=== PATIENT | male | born 1940 | race Caucasian/White ===

== ENCOUNTER 2017-09-18 12:20 | Emergency (ER) | payer MEDICARE, BC ==
[~2017-09-18] VITALS: Ht 175.3 cm; Wt 93.0 kg
[2017-09-18 12:21] VITALS: BP 201/84; PULSE 58; RESP 15; TEMP 98.8; O2SAT 96
[2017-09-18] MEDS ORDERED: TRAZ50TA12 PO (12:46)
[2017-09-18] MEDS ORDERED: CART120C PO (12:46)
[2017-09-18] MEDS ORDERED: OMEP20TA93 PO (12:46)
[2017-09-18] MEDS ORDERED: JANU50TA8 PO (12:46)
[2017-09-18] MEDS ORDERED: LISI20TA3 PO (12:46)
[2017-09-18] MEDS ORDERED: LANTUS2P SQ ×2 (12:46)
[2017-09-18] MEDS ORDERED: LIPI40TA PO (12:46)
--- NOTE | 2017-09-18 13:03 | PD ---
HPI Chief Complaint: Flank/Kidney Pain Time Seen by Provider: 12:31 Travel History International Travel<30 days: No Contact w/Intl Traveler<30days: No Traveled to known affect area: No History of Present Illness HPI 77-year-old male that presents to the ED of right flank pain with no injury. Per patient has had this on and off for the past 2 weeks. Per patient he comes and goes and worsens with certain movement as well as with laying on that side. Per patient he denies any urinary or bowel movement issues. This morning the pain became more severe 10 out of 10 and he decided to go to an urgent care who recommended that he comes here to get evaluated for CAT scan see whether he has a kidney stone or not. He denies any history of kidney stone in the past. He denies any surgeries ever. He has a history of diabetes and her blood pressure and takes insulin. Has not eaten anything today. Denies any nausea or vomiting. No bowel movement urinary issues. No blood thinner use. No chest pain or shortness of breath. Per patient the pain currently is 4 out of 10. Has been taking OTC meds with minimal relief. No trauma or overuse. No heavy lifting at all. PFSH Past Medical History Cardiovascular Problems: Yes (aortic valve ) High Cholesterol: Yes Diabetes: Yes Patient Takes Glucophage: No Hypertension: Yes Past Surgical History Surgical History: No Previous Surgery Social History Alcohol Use: No Tobacco Use: No Substance Use: No Allergies-Medications (Allergen,Severity, Reaction): Coded Allergies: No Known Allergies (Verified Allergy, Unknown, 09/18/17) Reported Meds & Prescriptions Reported Meds & Active Scripts Active Diclofenac Sodium DR (Diclofenac Sodium) 75 Mg Tabdr 75 Mg PO BID PRN Hydrocodone-Acetamin 5-325 mg (Hydrocodone/Acetaminophen) 5 Mg-325 Mg Tablet 1 Tab PO Q6HR PRN Reported Trazodone (Trazodone HCl) 50 Mg Tab 50 Mg PO HS Omeprazole 20 Mg Tab 20 Mg PO DAILY Cartia Xt (Diltiazem ER 24 HR) 120 Mg Caper 240 Mg PO DAILY Lisinopril-Hctz 20-25 Mg Tab 1 Tab PO DAILY Lantus Inj (Insulin Glargine) 1,000 Unit/10 Ml Vial 40 Units SQ HS Lantus Inj (Insulin Glargine) 1,000 Unit/10 Ml Vial 45 Units SQ AC BREAKFAST Janumet (Sitagliptin-Metformin) 50-1,000 Mg Tab 1 Tab PO DAILY Lipitor (Atorvastatin Calcium) 40 Mg Tab 40 Mg PO HS Review of Systems Except as stated in HPI: all other systems reviewed are Neg Physical Exam Narrative GENERAL: SKIN: Warm and dry. HEAD: Atraumatic. Normocephalic. EYES: Pupils equal and round. No scleral icterus. No injection or drainage. ENT: No nasal bleeding or discharge. Mucous membranes pink and moist. Tongue is midline. No uvula deviation. NECK: Trachea midline. No JVD. CARDIOVASCULAR: Regular rate and rhythm. RESPIRATORY: No accessory muscle use. Clear to auscultation. Breath sounds equal bilaterally. GASTROINTESTINAL: Abdomen soft, non-tender, nondistended. Hepatic and splenic margins not palpable. MUSCULOSKELETAL: Extremities without clubbing, cyanosis, or edema. No obvious deformities. No CVA tenderness noted. 2+ pulses bilaterally. No lumbar, thoracic, cervical spine tenderness to palpation. NEUROLOGICAL: Awake and alert. No obvious cranial nerve deficits. Motor grossly within normal limits. Five out of 5 muscle strength in the arms and legs. Normal speech. PSYCHIATRIC: Appropriate mood and affect; insight and judgment normal. Data Data Last Documented VS Vital Signs Date Time Temp Pulse Resp B/P (MAP) Pulse Ox O2 Delivery O2 Flow Rate FiO2 09/18/17 13:53 59 17 206/95 (132) 98 Room Air 09/18/17 12:21 98.8 Orders Orders Complete Blood Count With Diff (09/18/17 12:37) Comprehensive Metabolic Panel (09/18/17 12:37) Lipase (09/18/17 12:37) Urinalysis - C+S If Indicated (09/18/17 12:37) Magnesium (Mg) (09/18/17 12:37) Ct Abd/Pel W/O Iv Contrast (09/18/17 12:37) Blood Glucose (09/18/17 12:37) Morphine Inj (Morphine Inj) (09/18/17 13:45) Ondansetron Inj (Zofran Inj) (09/18/17 13:45) Ketorolac Inj (Toradol Inj) (09/18/17 13:45) Clonidine (Catapres) (09/18/17 14:00) Ed Discharge Order (2/10/18 14:08) Labs Laboratory Tests Test 09/18/17 12:47 White Blood Count 8.3 TH/MM3 Red Blood Count 4.63 MIL/MM3 Hemoglobin 13.8 GM/DL Hematocrit 40.3 % Mean Corpuscular Volume 86.9 FL Mean Corpuscular Hemoglobin 29.7 PG Mean Corpuscular Hemoglobin Concent 34.2 % Red Cell Distribution Width 13.8 % Platelet Count 183 TH/MM3 Mean Platelet Volume 9.7 FL Neutrophils (%) (Auto) 70.2 % Lymphocytes (%) (Auto) 20.3 % Monocytes (%) (Auto) 7.2 % Eosinophils (%) (Auto) 1.6 % Basophils (%) (Auto) 0.7 % Neutrophils # (Auto) 5.8 TH/MM3 Lymphocytes # (Auto) 1.7 TH/MM3 Monocytes # (Auto) 0.6 TH/MM3 Eosinophils # (Auto) 0.1 TH/MM3 Basophils # (Auto) 0.1 TH/MM3 CBC Comment DIFF FINAL Differential Comment Urine Color YELLOW Urine Turbidity CLEAR Urine pH 6.0 Urine Specific [place] 1.018 Urine Protein NEG mg/dL Urine Glucose (UA) 70 mg/dL Urine Ketones NEG mg/dL Urine Occult Blood NEG Urine Nitrite NEG Urine Bilirubin NEG Urine Urobilinogen LESS THAN 2.0 MG/DL Urine Leukocyte Esterase NEG Urine RBC LESS THAN 1 /hpf Urine WBC 1 /hpf Urine Bacteria RARE /hpf Microscopic Urinalysis Comment CULT NOT INDICATED Blood Urea Nitrogen 19 MG/DL Creatinine 1.15 MG/DL Random Glucose 118 MG/DL Total Protein 7.4 GM/DL Albumin 3.9 GM/DL Calcium Level 9.1 MG/DL Magnesium Level 2.3 MG/DL Alkaline Phosphatase 77 U/L Aspartate Amino Transf (AST/SGOT) 15 U/L Alanine Aminotransferase (ALT/SGPT) 12 U/L Total Bilirubin 0.3 MG/DL Sodium Level 139 MEQ/L Potassium Level 4.4 MEQ/L Chloride Level 104 MEQ/L Carbon Dioxide Level 29.3 MEQ/L Anion Gap 6 MEQ/L Estimat Glomerular Filtration Rate 62 ML/MIN Lipase 75 U/L MDM Medical Decision Making Medical Screen Exam Complete: Yes Emergency Medical Condition: Yes Medical Record Reviewed: Yes Interpretation(s) CBC & BMP Diagram 09/18/17 12:47 Total Protein 7.4, Albumin 3.9, Calcium Level 9.1, Magnesium Level 2.3, Alkaline Phosphatase 77, Aspartate Amino Transf (AST/SGOT) 15, Alanine Aminotransferase (ALT/SGPT) 12, Total Bilirubin 0.3 Last Impressions Abdomen/Pelvis CT 09/18/17 1237 Signed Impressions: Service Date/Time: Wednesday, September 18, 2017 13:11 - CONCLUSION: 1. No evidence of renal stones, hydronephrosis or other abnormality seen to account for the patient's pain. 2. No evidence of inflammatory process within the abdomen or pelvis.. Yadira Law MD UA shows leukerase esterase and bacteria Differential Diagnosis Kidney stone versus pyelonephritis versus gallbladder disease versus muscle strain versus muscle spasm Narrative Course 77-year-old male that presents to the ED for evaluation of right flank pain. Patient was properly examined and was found to have signs and symptoms of unclear etiology. Possible kidney stone. Labs and imaging ordered. Patient was offered pain medication but declined at this time. Labs and imaging showed no sign of acute disease. Patient and family were reassured. Likely muscle skeletal in nature. Pain is only reproducible with certain range of motion. I discussed this in my attending who is in agreement with plan. Patient was given pain medications here with relief of symptoms. Patient was given prescription for pain medications to use as needed. Follow up with PCP. See ED worsening symptoms. Diagnosis Primary Impression: Flank pain, acute Patient Instructions: General Instructions, Narcotic given in the ED Additional Instructions: Take medications as prescribed. Follow-up with PCP. See ED for any worsening symptoms. Do not drink or drive while taking pain medication. Apply ice or heat as needed for pain Med/Other Pt SpecificInfo: Prescription(s) given Scripts Diclofenac Sodium (Diclofenac Sodium DR) 75 Mg Tabdr 75 MG PO BID Y for PAIN SCALE 1 TO 10, #20 TAB 0 Refills Prov: Bird Quinones MD 09/18/17 Hydrocodone/Acetaminophen (Hydrocodone-Acetamin 5-325 mg) 5 Mg-325 Mg Tablet 1 TAB PO Q6HR Y for PAIN SCALE 1 TO 10, #12 Prov: Bird Quinones MD 09/18/17 Disposition: 01 DISCHARGE HOME Condition: Stable Nicholas Mcclelland Sep 18, 2017 13:03
[2017-09-18 13:22] LABS: AUTOMATED NEUTROPHIL # 5.8 TH/MM3 (1.8-7.7); BASOPHIL # 0.1 TH/MM3 (0-0.2); BASOPHIL % 0.7 % (0.0-2.0); EOSINOPHIL # 0.1 TH/MM3 (0-0.4); EOSINOPHIL % 1.6 % (0.0-4.0); HEMATOCRIT 40.3 % (39.0-51.0); HEMOGLOBIN 13.8 GM/DL (13.0-17.0); LYMPH % 20.3 % (9.0-44.0); LYMPHOCYTE # 1.7 TH/MM3 (1.0-4.8); MEAN CELL VOLUME 86.9 FL (80.0-100.0); MEAN CORPUSCULAR HEMOGLOBIN 29.7 PG (27.0-34.0); MEAN CORPUSCULAR HGB CONC 34.2 % (32.0-36.0); MEAN PLATELET VOLUME 9.7 FL (7.0-11.0); MONO % 7.2 % (0.0-8.0); MONOCYTE # 0.6 TH/MM3 (0-0.9); NEUT % 70.2 % (16.0-70.0); PLATELET COUNT 183 TH/MM3 (150-450); RED BLOOD COUNT 4.63 MIL/MM3 (4.50-5.90); RED CELL DISTRIBUTION WIDTH 13.8 % (11.6-17.2); WHITE BLOOD COUNT 8.3 TH/MM3 (4.0-11.0)
--- NOTE | 2017-09-18 13:26 | RADRPT ---
EXAM DATE/TIME: 09/18/2017 13:11 [facility] COMPARISON: No previous studies available for comparison. INDICATIONS : Right flank pain for two weeks. ORAL CONTRAST: No oral contrast ingested. RADIATION DOSE: 24.97 CTDIvol (mGy) ; Patient body habitus MEDICAL HISTORY : diabetes SURGICAL HISTORY : None. ENCOUNTER: Initial ACUITY: 2 weeks PAIN SCALE: 7/10 LOCATION: Right flank TECHNIQUE: Volumetric scanning of the abdomen and pelvis was performed. Using automated exposure control and ad justment of the mA and/or kV according to patient size, radiation dose was kept as low as reasonably achievable to obtain optimal diagnostic quality images. DICOM format image data is available electro nically for review and comparison. FINDINGS: LOWER LUNGS: The visualized lower lungs are clear. LIVER: Homogeneous density without lesion. There is no dilation of the biliary tree. No calcified gallston es. SPLEEN: Normal size without lesion. PANCREAS: Within normal limits. KIDNEYS: Normal in size and shape. There is no mass, stone, or hydronephrosis. ADRENAL GLANDS: Within normal limits. VASCULAR: Scattered atherosclerosis. No evidence of aneurysm. BOWEL/MESENTERY: The stomach, small bowel, and colon demonstrate no acute abnormality. There is no free intraperitone al air or fluid. ABDOMINAL WALL: Within normal limits. RETROPERITONEUM: There is no lymphadenopathy. BLADDER: No wall thickening or mass. REPRODUCTIVE: Normal Lasix size. Prostatic calcifications are noted. INGUINAL: There is no lymphadenopathy or hernia. MUSCULOSKELETAL: Within normal limits for patient age. CONCLUSION: 1. No evidence of renal stones, hydronephrosis or other abnormality seen to account for the patient's pain. 2. No evidence of inflammatory process within the abdomen or pelvis.. Yadira Law MD on September 18, 2017 at 13:21 Board Certified Radiologist. This report was verified electronically.
[2017-09-18 13:29] LABS: BACTERIA, URINE RARE /hpf; BILIRUBIN, URINE NEG (NEG); BLOOD, URINE NEG (NEG); GLUCOSE,URINE 70 mg/dL (NEG); KETONE, URINE NEG (NEG); NITRITE,URINE NEG (NEG); URINE COLOR YELLOW (YELLW/STRAW); URINE LEUKOCYTE ESTERASE NEG (NEG)
[2017-09-18] MEDS ORDERED: KETOROLAC TROMETHAMINE 30 MG/ML (IVP) VIAL IV PUSH ONE (13:45)
[2017-09-18] MEDS ORDERED: ONDANSETRON HCL 4 MG/2 ML VIAL IV PUSH ONE (13:45)
[2017-09-18] MEDS ORDERED: MORPHINE SULFATE 2 MG/ML INJ IV PUSH ONE (13:45)
[2017-09-18 13:51] LABS: ALBUMIN 3.9 GM/DL (3.4-5.0); ALT (GPT) 12 U/L (12-78); AST (GOT) 15 U/L (15-37); BICARBONATE 29.3 MEQ/L (21.0-32.0); BLOOD UREA NITROGEN 19 MG/DL (7-18); CALCIUM 9.1 MG/DL (8.5-10.1); CHLORIDE 104 MEQ/L (98-107); CREATININE 1.15 MG/DL (0.60-1.30); GLOMERULAR FILTRATION RATE 62 ML/MIN (>89); GLUCOSE,RANDOM 118 MG/DL (74-106); MAGNESIUM 2.3 MG/DL (1.5-2.5); SODIUM (NA) 139 MEQ/L (136-145)
[2017-09-18 13:53] VITALS: BP 206/95; PULSE 59; RESP 17; O2SAT 98
[2017-09-18 13:53] LABS: ALKALINE PHOSPHATASE 77 U/L (45-117); TOTAL BILIRUBIN ADULT 0.3 MG/DL (0.2-1.0); TOTAL PROTEIN 7.4 GM/DL (6.4-8.2)
[2017-09-18] MEDS ORDERED: HYDR-3516 PO (13:54)
[2017-09-18] MEDS ORDERED: DICL75TA PO (13:54)
[2017-09-18] MEDS ORDERED: cloNIDine HCL 0.1 MG TAB PO ONE (14:00)
[2017-09-18 14:30] VITALS: BP 194/86; PULSE 54; RESP 18; O2SAT 97
== END 2017-09-18 14:39 | disposition home or self-care (01) ==
LOC: NEPE 12:20
DX: R10.9 Unspecified abdominal pain (principal); E11.9 Type 2 diabetes mellitus without complications; I10 Essential (primary) hypertension; E78.00 Pure hypercholesterolemia, unspecified; Z79.4 Long term (current) use of insulin
CPT/HCPCS: 74176; 80053; 81001; 83690; 83735; 85025; 96374; 96375; 99284; J1885; J2270; J2405